=== PATIENT | female | born 1980 | race Caucasian/White ===

== ENCOUNTER 2018-03-03 08:41 | Emergency (ER) | payer MEDICAID ==
[2018-03-03 08:46] VITALS: BP 172/73; PULSE 77; RESP 18; TEMP 98.4; O2SAT 97
--- NOTE | 2018-03-03 09:11 | C.PDOC ---
History Of Present Illness 37 yo female, no prior hx presents with b/l eye redness x 1 day. states "woke up with it". reports mild sore throat no cough, no visual changes. eye mildly puritic. no known allergens. Time Seen by Provider: 03/03/18 09:06 Chief Complaint (Nursing): Eye Problem Past Medical History Reviewed: Historical Data, Nursing Documentation, Vital Signs Vital Signs: Last Vital Signs Temp 98.4 F 03/03/18 08:43 Pulse 77 03/03/18 08:43 Resp 18 03/03/18 08:43 BP 172/73 H 03/03/18 08:43 Pulse Ox 97 03/03/18 08:43 Family History: States: Unknown Family Hx - Social History Hx Tobacco Use: No Hx Alcohol Use: No Hx Substance Use: No - Immunization History Hx Tetanus Toxoid Vaccination: No Hx Influenza Vaccination: Yes Hx Pneumococcal Vaccination: No Review Of Systems Eyes: Positive for: Redness Physical Exam - Physical Exam Appears: Well, No Acute Distress Skin: Normal Color, Warm, Dry Eye(s): bilateral: PERRL, EOMI, Other (b/l mild conjunctiva injection, no periorbtial swelling erythema) Nose: Normal Throat: Normal Neck: Normal Cardiovascular: Rhythm Regular Respiratory: Normal Breath Sounds Gastrointestinal/Abdominal: Normal Exam Back: Normal Inspection Extremity: Normal ROM ED Course And Treatment O2 Sat by Pulse Oximetry: 97 Medical Decision Making Medical Decision Making: conjunctivits -viral vs bacterial vs allergic. will treat empricially visual acuity 20/20. no eye pain. advise outpt fu. Disposition - Disposition Referrals: Abilio Olson MD [Staff Provider] - Disposition: HOME/ ROUTINE Disposition Time: 09:11 Condition: STABLE Additional Instructions: return to er with worsening symptoms or concerns. Prescriptions: Polymyxin/Trimethoprim Sulfate [Polytrim Ophth Soln] 1 drop OU Q4 #1 bottle Instructions: Conjunctivitis ([place]) Print Language: VINCENTIAN - Clinical Impression Clinical Impression: Conjunctivitis
== END 2018-03-03 09:15 | disposition home or self-care (01) ==
LOC: C.ER 08:41
DX: H10.9 Unspecified conjunctivitis (principal)